=== PATIENT | male | born 1965 | race Caucasian/White ===

== ENCOUNTER 2018-02-25 10:59 | Outpatient (CLI) | payer BC, SELFPAY ==
--- NOTE | 2018-02-25 11:21 | DI.RAD_ITS ---
SYMPTOM/DIAGNOSIS: SHORTNESS OF BREATH, R06.02 PA AND LATERAL CHEST: The heart is normal in size. The lungs are clear. The mediastinal structures and pleura appear intact. CONCLUSION: Normal chest.
[2018-02-25 13:01] LABS: ALT 65 U/L (12-78); AST 30 U/L (15-37); Alkaline Phosphatase 101 U/L (46-116); Anion Gap 7.9 mmol/L (3-11); BUN 12 mg/dL (7-18); Bilirubin, Total 0.5 mg/dL (0.2-1.0); CO2 28.1 mmol/L (21.0-32.0); CREATININE 0.77 mg/dL (0.70-1.30); Calcium 8.8 mg/dL (8.5-10.1); Chloride 105 mmol/L (98-107); Cholesterol 149 mg/dL (50-200); Glucose 100 mg/dL (70-100); HDL Cholesterol 36 mg/dL (40-60); LDL CHOLESTEROL 84 mg/dL (<100); Potassium 4.6 mmol/L (3.5-5.1); Sodium 141 mmol/L (136-145); TSH (W/Ref FT4) 1.51 uIU/mL (0.358-3.74); Total Protein 7.3 g/dL (6.4-8.2); Triglyceride 200 mg/dL (30-150)
[2018-02-26 12:38] LABS: Lyme Ab w Rflx to Lyme Confirm Negative
[2018-02-26 23:13] LABS: Anaplasma phagocytophilum Negative (Negative); B. miyamotoi PCR Negative (Negative); Babesia divergens/MO-1 Negative (Negative); Babesia duncani Negative (Negative); Babesia microti Negative (Negative); Ehrlichia chaffeensis Negative (Negative); Ehrlichia ewingii/canis Negative (Negative); Ehrlichia muris eauclairensis Negative (Negative)
== END 2018-02-25 11:19 ==
PROVIDERS: PCP Family Medicine; Visit Provider Family Medicine
DX: W57.XXXA Bitten or stung by nonvenomous insect and other nonvenomous arthropods, initial encounter (principal); T14.8XXA Other injury of unspecified body region, initial encounter; I10 Essential (primary) hypertension; R06.02 Shortness of breath
CPT/HCPCS: 36415; 80053; 80061; 83721; 71046; 84443; 86618; 87798

== ENCOUNTER 2018-03-04 00:19 | Outpatient (CLI) | payer BC, SELFPAY ==
--- NOTE | 2018-03-04 09:45 | DI.US_ITS ---
SYMPTOMS/DIAGNOSIS: POUNDING IN NECK, CAD, I77.9 CAROTID ULTRASOUND: Routine examination was performed. On the left no hemodynamically significant velocity elevations are seen. The vertebral artery is antegrade. On the right no hemodynamically significant velocity elevations are present. There is mild dilatation of the proximal right common carotid artery with a diameter of 1.5 cm proximally compared with 1.2 cm more distally. The right vertebral artery is antegrade. IMPRESSION: No evidence of hemodynamically significant internal carotid artery stenosis.
== END 2018-03-04 00:39 ==
PROVIDERS: PCP Family Medicine; Visit Provider Family Medicine
DX: I77.89 Other specified disorders of arteries and arterioles (principal); I25.10 Atherosclerotic heart disease of native coronary artery without angina pectoris
CPT/HCPCS: 93880

== ENCOUNTER 2018-03-04 01:53 | Outpatient (CLI) | payer BC, SELFPAY | END 2018-03-04 02:13 | PROVIDERS: PCP Family Medicine; Visit Provider Family Medicine | DX: R00.2 Palpitations (principal); R06.02 Shortness of breath | CPT/HCPCS: 93225 ==

== ENCOUNTER 2018-03-05 17:48 | Outpatient (CLI) | payer BC, SELFPAY ==
--- NOTE | 2018-03-08 16:07 | W.HOLTRPT ---
Holter Monitor Report Holter Monitor Note: This is sinus. No supraventricular ectopy. Rare single PVC. No VT. No bradycardia. Symptoms: Shortness of breath/flutter noted once during sinus rhythm 102 bpm. Average heart rate 86 bpm.
== END 2018-03-05 18:08 ==
PROVIDERS: PCP Family Medicine; Visit Provider Family Medicine
DX: R00.2 Palpitations (principal); R06.02 Shortness of breath
CPT/HCPCS: 93226

== ENCOUNTER 2018-05-14 06:34 | Day surgery (SDC) | payer BC, SELFPAY ==
[2018-05-14 07:06] VITALS: BP 129/95; PULSE 85; RESP 16; TEMP 36.5; O2SAT 98
[2018-05-14] MEDS: Lactated Ringers 1,000 ML 30 ML IV (07:31)
--- NOTE | 2018-05-14 09:50 | BOWEL_PTH ---
PATIENT: Brandyn Cisneros LOC: [facility] U#:[id number] AGE/SX: 53/M ROOM: RE05/14/[address]: Eusebio Cardoza DO : 1965 BED: DIS: 05/14/2018 SPEC #: [id number] RECD: 05/14/18 12:40 STATUS: [facility] REQ #: [id number] JIM: 05/14/18 09:[address]: Eusebio Cardoza DEPT: Surgical Specimen RECD BY: Mary Beth Ronquillo ENTERED: 05/14/18 12:44 SP TYPE: Bowel OTHR DR: Aleta De La O MD, DC Tissues: 1 - BIOPSY BOWEL Procedures: GROSS AND MICRO LEVEL 4 Comments: [id number]
--- NOTE | 2018-05-14 09:56 | W.COLOREPORT ---
Date of service: 05/14/18 Time of Service: 09:00 Colonoscopy Report Date of procedure: 05/14/18 Pre-op diagnosis general: Personal history of colon polyps, family history of colorectal cancer Post-op diagnosis procedure note: other (Rectal Polyp) Procedure: Colonoscopy to the cecum with biopsy by cold forceps Surgeon: Eusebio Cardoza Anesthesia proc note operative: MAC (Jorge Luis King, BROWNFIELD PROGRAM COORDINATOR: ASA 2 Mallampati II) Estimated blood loss (mL): 1 Pathology: other (Rectal polyp) Complications: None Disposition: same day Indications: 53-year-old gentleman presenting for colorectal cancer screening with a personal history of colon polyps, and family history of colorectal cancer. He has been asymptomatic since his last colonoscopy. The colonoscopy procedure is been reviewed with him, and the risks discussed. All his questions were answered to his satisfaction, and consents been obtained to proceed with colonoscopy Prep: Miralax/Dulcolax (Prep quality) Procedure Start Time: 09:27 Procedure End Time: 09:49 Retraction Time: 15 Findings: In examining the colon from cecum to the anus, one polyp was identified in the rectum removed by cold biopsy forceps. No other abnormalities were noted of the rectum colon or anorectal junction Procedure Description: The patient was seen in the day surgery waiting area. His identification was confirmed, and procedure checked. He was then brought to the procedure room. Monitoring for telemetry, blood pressure, oxygen saturation, and end tidal CO2 monitoring were applied. An appropriate time out was performed to confirm, identification, allergies, medication, procedure, was performed. Sedation was titrated for affect by the BROWNFIELD PROGRAM COORDINATOR; Once adequate sedation was achieved, I performed a inspection of the external perineum, and a digitial rectal examination. No significant external abnormalities were noted. On digital rectal examination, there was no blood, no masses, good rectal tone, and a normal prostate. I advanced the colonoscope from the anus to the cecum under direct visualization. The cecum was identified by the ileal-cecal valve, and the appendiceal orifice. The scope was then withdrawn in circumferential manner from the cecum to the rectum. No abnormalites were noted in the colon. The scope was then withdrawn into the rectum, and retroflexed. A single polyp was identified in the rectum and subsequently removed by cold biopsy forceps was less than 1 cm in greatest diameter. No abnormalities are noted of the anorectal junction. The scope was then withdrawn, terminating the procedure. There were no complications during the procedure, and the patient tolerated the procedure well. He was returned to the day surgery recovery area in good condition. Plan: We will await pathology before making further recommendations.
--- NOTE | 2018-05-14 10:03 | W.PM.DSUDISC ---
Discharge Plan Disposition Patient Disposition: HOME Condition: Good Discharge Details Reason For Visit: SCREENING Attending Provider: Eusebio Cardoza Primary Care Provider: Aleta De La O Home Meds and New Rx's Prescriptions: Continued cholecalciferol (vitamin D3) 5,000 unit capsule 5,000 unit PO DAILY RF: 0 hydrochlorothiazide 25 mg tablet 25 mg PO DAILY Qty: 90 RF: 4 atorvastatin 40 mg tablet 40 mg PO DAILY Qty: 90 RF: 4 aspirin [Adult Aspirin Regimen] 81 mg tablet,delayed release (DR/EC) 81 mg PO DAILY RF: 0 ibuprofen 800 MG tablet 800 mg PO TID PRNQty: 30 RF: 3 chlorthalidone 25 MG tablet 25 mg PO DAILY Qty: 90 RF: 12 Discharge Instructions Instructions: Colonoscopy (DC) Activity:: Activity as Tolerated Diet:: As Tolerated Discharge Orders Discharge Orders: Discharge Order (Routine); Ordered 05/14/18 Ordered By: Eusebio Cardoza DS: Diagnosis Discharge Diagnosis (1) Personal history of colonic polyps: Status: Acute Asessment and Plan: Colonoscopy performed: Colonoscopy Report Date of procedure: 05/14/18 Pre-op diagnosis general: Personal history of colon polyps, family history of colorectal cancer Post-op diagnosis procedure note: other (Rectal Polyp) Procedure: Colonoscopy to the cecum with biopsy by cold forceps Surgeon: Eusebio Cardoza Anesthesia proc note operative: MAC (Jorge Luis King, SENIOR BILLING CONSULTANT: ASA 2 Mallampati II) Estimated blood loss (mL): 1 Pathology: other (Rectal polyp) Complications: None Disposition: same day Indications: 53-year-old gentleman presenting for colorectal cancer screening with a personal history of colon polyps, and family history of colorectal cancer. He has been asymptomatic since his last colonoscopy. The colonoscopy procedure is been reviewed with him, and the risks discussed. All his questions were answered to his satisfaction, and consents been obtained to proceed with colonoscopy Prep: Miralax/Dulcolax (Prep quality) Procedure Start Time: 09:27 Procedure End Time: 09:49 Retraction Time: 15 Findings: In examining the colon from cecum to the anus, one polyp was identified in the rectum removed by cold biopsy forceps. No other abnormalities were noted of the rectum colon or anorectal junction Procedure Description: The patient was seen in the day surgery waiting area. His identification was confirmed, and procedure checked. He was then brought to the procedure room. Monitoring for telemetry, blood pressure, oxygen saturation, and end tidal CO2 monitoring were applied. An appropriate time out was performed to confirm, identification, allergies, medication, procedure, was performed. Sedation was titrated for affect by the SENIOR BILLING CONSULTANT; Once adequate sedation was achieved, I performed a inspection of the external perineum, and a digitial rectal examination. No significant external abnormalities were noted. On digital rectal examination, there was no blood, no masses, good rectal tone, and a normal prostate. I advanced the colonoscope from the anus to the cecum under direct visualization. The cecum was identified by the ileal-cecal valve, and the appendiceal orifice. The scope was then withdrawn in circumferential manner from the cecum to the rectum. No abnormalites were noted in the colon. The scope was then withdrawn into the rectum, and retroflexed. A single polyp was identified in the rectum and subsequently removed by cold biopsy forceps was less than 1 cm in greatest diameter. No abnormalities are noted of the anorectal junction. The scope was then withdrawn, terminating the procedure. There were no complications during the procedure, and the patient tolerated the procedure well. He was returned to the day surgery recovery area in good condition. Plan: We will await pathology before making further recommendations.
[2018-05-14 10:35] VITALS: BP 118/84; PULSE 69; RESP 16; TEMP 36; O2SAT 97
== END 2018-05-14 10:47 | disposition home or self-care (01) ==
PROVIDERS: PCP Family Medicine; Visit Provider Surgery
PROC: 0DJD8ZZ Inspection of Lower Intestinal Tract, Via Natural or Artificial Opening Endoscopic (ICD-10-PCS; CPT 45378; principal; 2018-05-14 08:30)
DX: Z12.11 Encounter for screening for malignant neoplasm of colon (principal); K62.1 Rectal polyp; Z86.010 Personal history of colon polyps; I10 Essential (primary) hypertension
CPT/HCPCS: 45380; 88305

== ENCOUNTER 2019-01-13 08:54 | Outpatient (CLI) | payer BC, SELFPAY ==
[2019-01-13 13:23] LABS: ALT 60 U/L (12-78); AST 28 U/L (15-37); Albumin 4.1 g/dL (3.4-5.0); Alkaline Phosphatase 110 U/L (46-116); Anion Gap 11.9 mmol/L (3-11); BUN 16 mg/dL (7-18); Bilirubin, Total 0.6 mg/dL (0.2-1.0); CO2 26.1 mmol/L (21.0-32.0); CREATININE 0.79 mg/dL (0.70-1.30); Calcium 8.8 mg/dL (8.5-10.1); Calculated LDL 77 mg/dL; Chloride 101 mmol/L (98-107); Cholesterol 153 mg/dL (50-200); Glucose 118 mg/dL (70-100); HDL Cholesterol 39 mg/dL (40-60); Potassium 4.5 mmol/L (3.5-5.1); Sodium 139 mmol/L (136-145); Total Protein 7.6 g/dL (6.4-8.2); Triglyceride 185 mg/dL (30-150)
== END 2019-01-13 09:14 ==
PROVIDERS: PCP Family Medicine; Visit Provider Family Medicine
DX: I10 Essential (primary) hypertension (principal)
CPT/HCPCS: 36415; 80053; 80061; 83721

== ENCOUNTER 2019-05-23 09:09 | Outpatient (CLI) | payer BC, SELFPAY ==
[2019-05-24 19:49] LABS: B.burgdorferi PCR, B Negative (Negative); B.garinii/B.afzelii PCR,B Negative (Negative); B.mayonii PCR, B Negative (Negative)
== END 2019-05-23 09:29 ==
PROVIDERS: Nurse Practitioner; PCP Family Medicine; Visit Provider Family Medicine
DX: G51.0 Bell's palsy (principal); Z11.8 Encounter for screening for other infectious and parasitic diseases
CPT/HCPCS: 36415; 87476; 87798

== ENCOUNTER 2019-07-12 07:50 | Outpatient (CLI) | payer OTHER, SELFPAY ==
--- NOTE | 2019-07-12 08:28 | DI.RAD_ITS ---
EXAM: XR CHEST 2V PA LATERAL CLINICAL HISTORY: cough, R05 TECHNIQUE: 2D digital imaging was performed. COMPARISON: No exams were available for comparison FINDINGS: The cardiac and mediastinal contours have a normal appearance. The lungs are well inflated and clear . No infiltrate, effusion or pneumothorax is seen. No spine or rib fracture is identified. IMPRESSION: Negative chest x-ray.
== END 2019-07-12 08:10 ==
PROVIDERS: PCP Family Medicine; Visit Provider Family Medicine
DX: R05 Cough (principal)
CPT/HCPCS: 71046

== ENCOUNTER 2020-01-25 03:17 | Outpatient (CLI) | payer OTHER, SELFPAY ==
[2020-01-25 17:32] LABS: Hemoglobin A1C 5.8 % (3.8-5.6)
[2020-01-25 18:04] LABS: ALT 61 U/L (16-63); AST 23 U/L (15-37); Albumin 4.6 g/dL (3.4-5.0); Alkaline Phosphatase 94 U/L (46-116); Anion Gap 7.9 mmol/L (3-11); BUN 14 mg/dL (7-18); Bilirubin, Total 0.5 mg/dL (0.2-1.0); CO2 29.1 mmol/L (21.0-32.0); CREATININE 0.83 mg/dL (0.70-1.30); Calcium 9.8 mg/dL (8.5-10.1); Calculated LDL 115 mg/dL (<100); Chloride 102 mmol/L (98-107); Cholesterol 230 mg/dL (<200); Glucose 110 mg/dL (74-106); HDL Cholesterol 39 mg/dL (40-60); Potassium 4.4 mmol/L (3.5-5.1); Sodium 139 mmol/L (136-145); Total Protein 7.8 g/dL (6.4-8.2); Triglyceride 381 mg/dL (<150)
[2020-01-26 17:39] LABS: PSA, Screening 0.5 ng/mL (0.0-3.5)
== END 2020-01-25 03:37 ==
PROVIDERS: PCP Family Medicine; Visit Provider Family Medicine
DX: Z00.00 Encounter for general adult medical examination without abnormal findings (principal); I10 Essential (primary) hypertension; E11.9 Type 2 diabetes mellitus without complications; Z12.5 Encounter for screening for malignant neoplasm of prostate
CPT/HCPCS: 36415; 80053; 80061; 84153; 83036

== ENCOUNTER 2020-05-15 01:58 | Outpatient (CLI) | payer OTHER, SELFPAY ==
[2020-05-17 21:34] LABS: COVID-19 RT-PCR Result NEGATIVE (Negative)
== END 2020-05-15 02:18 ==
PROVIDERS: PCP Family Medicine; Visit Provider Family Medicine
DX: Z20.828 Contact with and (suspected) exposure to other viral communicable diseases (principal)
CPT/HCPCS: U0003

== ENCOUNTER 2021-02-19 09:03 | Outpatient (CLI) | payer OTHER, SELFPAY ==
[2021-02-19 12:40] LABS: ALT 53 U/L (16-63); AST 25 U/L (15-37); Albumin 4.2 g/dL (3.4-5.0); Alkaline Phosphatase 83 U/L (46-116); Anion Gap 9.2 mmol/L (3-11); BUN 14 mg/dL (7-18); Bilirubin, Total 0.5 mg/dL (0.2-1.0); CO2 28.8 mmol/L (21.0-32.0); CREATININE 0.9 mg/dL (0.70-1.30); Calcium 8.7 mg/dL (8.5-10.1); Calculated LDL 88 mg/dL (<100); Chloride 102 mmol/L (98-107); Cholesterol 163 mg/dL (<200); Glucose 123 mg/dL (74-106); HDL Cholesterol 39 mg/dL (40-60); Potassium 4.2 mmol/L (3.5-5.1); Sodium 140 mmol/L (136-145); Total Protein 7.4 g/dL (6.4-8.2); Triglyceride 181 mg/dL (<150)
[2021-02-19 13:35] LABS: Hemoglobin A1C 6.6 % (<5.7)
[2021-02-19 22:47] LABS: PSA, Screening 0.5 ng/mL (0.0-3.5)
== END 2021-02-19 09:04 | disposition home or self-care (01) ==
LOC: LOS 09:11
PROVIDERS: PCP Family Medicine; Visit Provider Family Medicine
DX: Z00.00 Encounter for general adult medical examination without abnormal findings (principal); E11.9 Type 2 diabetes mellitus without complications; Z12.5 Encounter for screening for malignant neoplasm of prostate
CPT/HCPCS: 36415; 80053; 80061; 84153; 83036

== ENCOUNTER 2021-12-18 01:11 | Outpatient (CLI) | payer OTHER, SELFPAY ==
[2021-12-18 13:14] LABS: ALT 57 U/L (16-63); AST 33 U/L (15-37); Albumin 4.3 g/dL (3.4-5.0); Alkaline Phosphatase 80 U/L (46-116); BUN 16 mg/dL (7-18); Bilirubin, Total 0.5 mg/dL (0.2-1.0); CREATININE 0.9 mg/dL (0.70-1.30); Calcium 9.4 mg/dL (8.5-10.1); Calculated LDL 88 mg/dL (<100); Chloride 99 mmol/L (98-107); Cholesterol 172 mg/dL (<200); Glucose 154 mg/dL (74-106); HDL Cholesterol 43 mg/dL (40-60); Potassium 4.3 mmol/L (3.5-5.1); Sodium 137 mmol/L (136-145); Total Protein 7.8 g/dL (6.4-8.2); Triglyceride 205 mg/dL (<150)
[2021-12-18 13:31] LABS: Hemoglobin A1C 6.5 % (<5.7)
== END 2021-12-18 01:12 | disposition home or self-care (01) ==
LOC: LOS 01:11
PROVIDERS: PCP Family Medicine; Visit Provider Family Medicine
DX: Z00.00 Encounter for general adult medical examination without abnormal findings (principal); E11.9 Type 2 diabetes mellitus without complications
CPT/HCPCS: 36415; 80053; 80061; 83036

== ENCOUNTER 2022-01-01 15:35 | Outpatient (REF) | payer OTHER, SELFPAY ==
[2022-01-01 12:58] LABS: COMMENT (LAB VIEW ONLY) 78.54 mg/dL; Microalb ug/mg Crea 8.8 ug/mg Cr
== END 2022-01-01 15:36 | disposition home or self-care (01) ==
LOC: LBN 15:35
PROVIDERS: PCP Family Medicine; Visit Provider Family Medicine
DX: Z00.00 Encounter for general adult medical examination without abnormal findings (principal); E11.9 Type 2 diabetes mellitus without complications
CPT/HCPCS: 82043; 82570

== ENCOUNTER 2022-10-06 09:35 | Outpatient (CLI) | payer BC, SELFPAY ==
[2022-10-06 12:34] LABS: Hemoglobin A1C 6.1 % (<5.7)
[2022-10-06 12:45] LABS: ALT 29 U/L (16-63); AST 22 U/L (15-37); Albumin 4.4 g/dL (3.4-5.0); Alkaline Phosphatase 91 U/L (46-116); Anion Gap 10.5 mmol/L (3-11); BUN 14 mg/dL (7-18); CO2 27.5 mmol/L (21.0-32.0); CREATININE 0.9 mg/dL (0.70-1.30); Calcium 9.1 mg/dL (8.5-10.1); Calculated LDL 117 mg/dL (<100); Chloride 101 mmol/L (98-107); Cholesterol 188 mg/dL (<200); Glucose 114 mg/dL (74-106); HDL Cholesterol 52 mg/dL (40-60); Potassium 3.8 mmol/L (3.5-5.1); Sodium 139 mmol/L (136-145); Triglyceride 96 mg/dL (<150)
[2022-10-06 21:35] LABS: PSA, Screening 0.6 ng/mL (<=3.5)
== END 2022-10-06 09:36 | disposition home or self-care (01) ==
LOC: LOS 09:35
PROVIDERS: PCP Family Medicine; Referring Provider Family Medicine; Visit Provider Family Medicine
DX: Z00.00 Encounter for general adult medical examination without abnormal findings (principal); I10 Essential (primary) hypertension; E11.9 Type 2 diabetes mellitus without complications; Z12.5 Encounter for screening for malignant neoplasm of prostate
CPT/HCPCS: 36415; 80053; 80061; 84153; 83036

== ENCOUNTER 2023-06-22 10:45 | Outpatient (REF) | payer BC, SELFPAY ==
--- NOTE | 2023-06-22 08:15 | SKI_PTH ---
PATIENT: Brandyn Cisneros LOC: [facility] U#:[id number] AGE/SX: 58/M ROOM: RE06/22/[address]: Aleta De La O MD, DC : 1965 BED: DIS: 06/22/2023 SPEC #: [id number] RECD: 06/22/23 12:37 STATUS: [facility] RELeonor #: [id number] JIM: 06/22/23 08:[address]: Aleta De La O DEPT: Surgical Specimen RECD BY: Mary Beth Ronquillo Tissues: 1 - SKIN BIOPSY(SHAVE/PUNCH) Procedures: SKIN LEVEL 4 Comments: [id number]
== END 2023-06-22 10:46 | disposition home or self-care (01) ==
LOC: LBN 10:45
PROVIDERS: PCP Family Medicine; Visit Provider Family Medicine
DX: R21 Rash and other nonspecific skin eruption (principal); L30.8 Other specified dermatitis
CPT/HCPCS: 88305

== ENCOUNTER 2024-07-31 14:38 | Emergency (ER) | payer SELFPAY ==
[2024-07-31 14:39] VITALS: BP 175/106; PULSE 113; RESP 18; TEMP 39.3; O2SAT 93
[2024-07-31 14:43] VITALS: BP 175/106; PULSE 113; RESP 18; TEMP 39.3; O2SAT 93
--- NOTE | 2024-07-31 14:45 | DI.RAD_ITS ---
Exam(s) XR CHEST 2V PA LATERAL EXAM: XR CHEST 2V PA LATERAL CLINICAL HISTORY: cough, fever TECHNIQUE: 2D digital imaging was performed. Two views. COMPARISON: CR XR CHEST 2V PA LATERAL from 07/12/2019 FINDINGS: Exam is limited by suboptimal pulmonary inflation, particularly on the lateral view. HEART: Normal size. Aorta: Not dilated. PULMONARY VASCULATURE: Normal. MEDIASTINUM: Unremarkable. LUNGS: Suboptimal pulmonary inflation. No evidence of consolidation. PLEURAL SPACE: No pleural effusion or pneumothorax. BONE:Unremarkable for age. SOFT TISSUES: Unremarkable. IMPRESSION: No acute abnormality. DATA REPOSITORY: RADIATION DOSE DELIVERED:
--- NOTE | 2024-07-31 14:59 | ED.GENADUL_ITS ---
Discharge Plan Disposition Patient Disposition: Home Condition: Stable Discharge Details Clinical Impression: Influenza A Primary Care Provider: Aleta De La O ED Provider: Alexandria Machuca Home Meds and New Rx's Prescriptions: New oseltamivir [Tamiflu] 75 mg capsule 75 mg PO BID 5 Days Qty: 10 0RF No Action cholecalciferol (vitamin D3) 25 mcg (1,000 unit) capsule 50 mcg PO DAILY ascorbic acid (vitamin C) 500 mg capsule 500 mg PO DAILY atorvastatin 10 mg tablet 10 mg PO DAILY Qty: 90 5RF hydrochlorothiazide 25 mg tablet 25 mg PO DAILY Qty: 90 4RF ibuprofen 800 MG tablet 800 mg PO TID PRNQty: 30 Rx Instructions: take with food Discharge Instructions Instructions: Flu, Adult ED Additional Instructions: Please stay well hydrated. Take Tylenol, round the clock, for fever and body ache relief. Return to the emergency department immediately with any worsening symptoms or any other concerns. HPI General Date/Time Provider Initiated Documentation: 07/31/24 14:40 . HPI Narrative: The patient is a 59-year-old male with a history of hypertension who comes emergency department for fever, cough. The patient reports he has been feeling poorly for the past 3 days. Reports that he has been around multiple people with similar symptoms. Reports the fever did not start until last night and states that he had a rough night because of it. Reports that he has been taking Tylenol and last took it at 8 in the morning. Admits that he has a nonproductive cough with this and he has pain along his left rib when he coughs. Denies abdominal pain, nausea or vomiting. Denies changes in bowel habits. Denies shortness of breath or any other chest pain apart from pain along the left rib as mentioned although he reports that his whole body does hurt. Related Data Home Medications ?Medication ?Instructions ?Recorded ?Confirmed ibuprofen 800 mg tablet 800 mg PO TID PRN #30 tab-caps 03/05/15 07/31/24 ascorbic acid (vitamin C) 500 mg 500 mg PO DAILY 05/01/20 07/31/24 capsule cholecalciferol (vitamin D3) 25 50 mcg PO DAILY 05/01/20 07/31/24 mcg (1,000 unit) capsule atorvastatin 10 mg tablet 10 mg PO DAILY #90 tabs 11/27/23 03/02/25 hydrochlorothiazide 25 mg tablet 25 mg PO DAILY #90 tabs 04/27/23 07/31/24 oseltamivir 75 mg capsule (Tamiflu) 75 mg PO BID 5 days #10 caps 07/31/24 Previous Rx's ?Medication ?Instructions ?Recorded atorvastatin 10 mg tablet 10 mg PO DAILY #90 tabs 04/27/23 hydrochlorothiazide 25 mg tablet 25 mg PO DAILY #90 tabs 04/27/23 oseltamivir 75 mg capsule (Tamiflu) 75 mg PO BID 5 days #10 caps 07/31/24 Allergies Allergy/AdvReac Type Severity Reaction Status Date / Time acetaminophen (From Tylenol) Allergy Severe Skin Rash Unverified 07/31/24 14:42 lisinopril AdvReac Intermediate nausea Verified 07/31/24 14:42 atorvastatin AdvReac Severe lichen Uncoded 07/31/24 14:42 planus hctz AdvReac Severe lichen Uncoded 07/31/24 14:42 planus General Stated Complaint: GenMedical DANN: 3 Review of Systems Narrative: Review of systems are negative except as mentioned. Exam Const General: cooperative and no acute distress Orientation: alert, awake and oriented x3 Neck Other: No meningismus. Chest Other: No chest wall tenderness is noted to palpation. Resp Effort & Inspection: normal respiratory effort Auscultation: clear to auscultation bilaterally, no rhonchi and no wheezes Cardio Rhythm: other (The patient is tachycardic but regular.) Pulses: radial pulses present GI Palpation: soft Auscultation: normal bowel sounds Rectal Exam: No tenderness Skin Other: Skin is warm and flushed. Course Vital Signs Vital signs: Vital Signs Temperature 39.3 C H 07/31/24 14:39 Pulse 113 H 07/31/24 14:39 Respiratory Rate 18 07/31/24 14:39 Blood Pressure 175/106 H 07/31/24 14:39 Pulse Oximetry 93 07/31/24 14:39 Temperature 39.3 C H 07/31/24 14:43 Pulse 113 H 07/31/24 14:43 Respiratory Rate 18 07/31/24 14:43 Blood Pressure 175/106 H 07/31/24 14:43 Pulse Oximetry 93 07/31/24 14:43 Medical Decision Making Due to the prevalence of viral illness in the community and known sick contacts I suspect that the patient has a viral process as well. The viral swab has been ordered. I have ordered a chest x-ray also and Tylenol in the meantime. The patient's viral swab is positive for influenza A. I updated the patient and his regarding this. I talked him about Tamiflu and he is interested in taking a dose so a dose has been ordered for him. Chest x-ray is done and the result is still pending. Chest x-ray is back. Patient has either bibasilar pneumonitis versus atelectasis. I have updated the patient and his of workup result. The patient reports he starting to feel better. I will recheck his vital signs and plan is for him to be discharged home with prescription for more Tamiflu for the next few days. He is encouraged to continue [id number] Tylenol since he is unable to take ibuprofen. He is asked to stay well-hydrated and should he get worse or develop any new or concerning symptoms return to the emergency department immediately for reevaluation. Prior to discharge his vital signs were checked once more. His temperature is still elevated and his heart rate is still elevated. 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 Patient is still comfortable going home and in fact would prefer going home so he can lay down in his own bed therefore he is discharged. Imaging Data Radiologic Study: Imaging: X-Ray (Chest x-ray) Radiologist's impression: V-rad: Possible early bibasilar pneumonitis or atelectasis. No definite focal consolidation. Quality:SDOH Health Related Social Needs: No Data to Display PFSH All Active Problems (Updated 07/31/24 @ 16:32 by Alexandria Machuca DO) Influenza A (Acute) Annual physical exam (Acute 09/18/15) Polyp of colon, adenomatous (Chronic 09/13/12) DR. VIVIENNE ROJAS; TUBULAR ADENOMA AND COLITIS Essential hypertension (Chronic 07/01/13) miss appt. 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 Asthma Shortness of breath Surgical History (Updated 06/17/18 @ 09:38 by Sandy Adler RN) H/O colonoscopy (05/14/18) 05/14/18 Dr Alcala, benign, repeat five years per Dr alcala due to personal hx polyps and family history of colon CA Family History (Updated 01/24/20 @ 11:14 by Vanita De) Mother Stroke At childbirth Cancer SKIN Hypertension Father Diabetes Essential hypertension Heart disease PACEMAKER Hyperlipidemia Cancer SKIN Sister Depression Grandfather Essential hypertension Heart disease Hyperlipidemia Grandfather Essential hypertension Heart disease Hyperlipidemia Grandmother Diabetes Hyperlipidemia Grandmother Personal history of malignant neoplasm Lymphoma Maternal Uncle Personal history of malignant neoplasm COLON Son Kawasaki disease Heart disease Social History (Updated 10/06/22 @ 14:03 by Becky Woo) Smoking/Tobacco Use Status: Never Second Hand Exposure: Yes Smoking risk assessment performed?: Yes Alcohol Intake: current Alcohol Intake frequency: a few times a week Alcohol type: beer and hard liquor Drug use: Never Substance use type: does not use Caregiver/Support person: No Household members: spouse Housing: house Communication Needs: None Do you need help understanding health information?: Never current occupation: MUSICIAN / TEACHER / ENTERTAINER Pets and animals: Yes Pets and animals: farm animals Sexually active: Yes Do you think of yourself as: straight/heterosexual Current gender identity: male What is your relationship status?: How often do you talk on the phone with friends or family?: three or more times per week How often do you get together with friends or relatives?: once per week How often do you attend judaism or zoroastrianism services?: 4 or more times per year Do you belong to any clubs or organized social groups?: yes Panel score (0-1 are the most socially isolated patients): 4 What type of physical activity do you participate in: walking Duration: 30-45 minutes/day Frequency: 3-4 times per week Rupinder/Protestant: Christianity Special rupinder needs: Yes (Prayers) Seatbelt use: always Helmet use: No Drive intox or ride w/intox warehouse delivery driver: No
[2024-07-31] MEDS: Acetaminophen 500 MG TAB 1000 MG PO (15:09)
[2024-07-31 15:10] VITALS: RESP 24
[2024-07-31 15:26] LABS: COVID-19 PCR Negative (Negative); Influenza A PCR Positive (Negative); Influenza B PCR Negative (Negative); RSV PCR Negative (Negative)
[2024-07-31 15:27] LABS: Source Nasopharynx
[2024-07-31] MEDS: Oseltamivir 75 MG CAP PO (15:56)
--- NOTE | 2024-07-31 16:24 | DI.VRAD_ITS ---
PROCEDURE INFORMATION: Exam: XR Chest Exam date and time: 07/31/2024 3:20 PM Age: 59 years old Clinical indication: Cough and fever TECHNIQUE: Imaging protocol: Radiologic exam of the chest. Views: 2 views. COMPARISON: CR XR CHEST 2V PA LATERAL 07/12/2019 8:28 AM FINDINGS: Lungs: There is some mild increased markings at the lung bases compared with previous exam. Pleural spaces: Unremarkable. No pleural effusion. No pneumothorax. Heart/Mediastinum: There is mild cardiomegaly. Bones/joints: Unremarkable. IMPRESSION: Possible early bibasilar pneumonitis or atelectasis. No definite focal consolidation. Dictated and Authenticated by: Phuong Savage MD. Orderin Sven Ibrahim MD
[2024-07-31 16:36] VITALS: BP 147/95; PULSE 110; RESP 18; TEMP 38.3; O2SAT 95
== END 2024-07-31 16:55 | disposition home or self-care (01) ==
PROVIDERS: Emergency Provider Emergency Medicine; PCP Family Medicine
DX: J10.1 Influenza due to other identified influenza virus with other respiratory manifestations (principal); E11.9 Type 2 diabetes mellitus without complications; I10 Essential (primary) hypertension
CPT/HCPCS: 87637; 99284; 71046